=== PATIENT | female | born 1980 | race Caucasian/White ===

== ENCOUNTER 2024-09-10 19:39 | Outpatient (CLI) | payer OTHER ==
--- NOTE | 2024-09-20 12:21 | P.PCN ---
Description of Procedure: POLYSOMNOGRAPHY REPORT PROCEDURE(S)/DATE(S): Polysomnography 323 5 CLINICAL: Patient has been seen in the sleep center for evaluation of obstructive sleep apnea-hypopnea syndrome. Please see my consultation. Sleep study has been done for evaluation of patient breathing during the sleep. PROCEDURE: The standard montage for clinical polysomnography included the electroencephalogram, the electrooculogram, the mentalis surface electromyography and Lead II cardiography. The respiratory battery consisted of measurements of nasal/buccal air flow, pressure transducer measurements from nose, thoracic and/or abdominal effort and intercostal surface electromyography. Video monitoring has been done to check for any parasomnia events. Nocturnal oxyhemoglobin saturations were obtained by finger oximetry. Step-cook titration with positive airway pressure was utilized to control the respiratory events, if necessary. RESULTS: During the diagnostic sleep study sleep efficiency was decreased to 74.9%. Latency to sleep onset was significantly prolonged to 55.0 min. Sleep architecture showed stage NI was short 3.2%, Delta sleep was absent 0%, REM sleep was normal 25.7%. Respiratory channel showed 0 obstructive apneas, 0 mixed apneas, 0 central apneas, 112 hypopneas with lowest oxygen level 85%. Total apnea hypopnea index was 24.2, 40.3 in REM sleep. Heart rate was in the range between 56 and 95, average 71. EMG showed 0 periodic limb movements per hour with 0 micro-arousals per hour. IMPRESSIONS: 1. Moderate obstructive sleep apnea hypopnea syndrome, severe in REM sleep. 2. No significant periodic limb movements have been documented. Please see other impressions from consultation PLAN: 1. The patient will have PAP titration for correction of respiratory abnormalities during the sleep. 2. Losing weight. 3. Sleep hygiene with regular time in bed for at least 7-1/2 hours. 4. No driving if feeling sleepiness. Thank you very much for allowing me to participate in the management of your patient. Sincerely, Ty Reyes MD, PhD, FAASM. Diplomat of [place] [employer], Sleep Medicine Board by [place] [employer] Pharmacy Benefits Coordinator of [facility] [place] cc: Delano Tao MD
== END 2024-09-11 05:20 | disposition home or self-care (01) ==
LOC: 3 N SLEEP 19:39
PROVIDERS: ATTEND Internal Medicine
DX: G47.33 Obstructive sleep apnea (adult) (pediatric) (principal)
CPT/HCPCS: 95810

== ENCOUNTER 2024-11-26 19:44 | Outpatient (CLI) | payer OTHER ==
--- NOTE | 2024-12-14 14:35 | P.PCN ---
Description of Procedure: CLINICAL: Titration with positive air pressure has been done for correction of respiratory abnormalities during sleep. DESCRIPTION OF PROCEDURE: The standard montage for clinical polysomnography included the electroencephalogram, the electrocardiogram, the mentalis surface electromyography and Lead II cardiography. The respiratory battery consisted of measurements of nasal /buccal air flow, pressure transducer measurements from the nose, thoracic and /or abdominal effort and intercostal surface electromyography. Video monitoring has been done to check for any parasomnia events. Nocturnal oxyhemoglobin saturations were obtained by finger oximetry. Step-cook titration with positive airway pressure was utilized to control respiratory events. Raw data of sleep recording has been reviewed and is adequate. RESULTS: Sleep efficiency was decreased to 79.6%. Latency to sleep onset was significantly prolonged to 74.5 minutes.]. Sleep architecture showed stage N1 was short 3.2%, Delta sleep was absent 0%, REM sleep was normal 24.1%. Heart rate was minimum 61 BPM, maximum 70 BPM, average 65 BPM. EMG showed 0 periodic limb movements per hour. PAP titration have been done with CPAP up to the pressure 15 cm H2O. patient continued to have abnormalities of respiration while on CPAP, switched to BPAP. BPAP titrated up to 17/13 cm H2O. The best results were at the pressure BiPAP 17/13 cm H2O. Apnea hypopnea index reduced to 5.8. IMPRESSION: 1. Obstructive sleep apnea hypopnea syndrome mostly on controle with BPAP treatment. 2. No significant periodic limb movements have been documented. Please see other impressions from consultation. PLAN: 1. The patient will have treatment with positive air pressure equipment with the level of pressure auto BiPAP with maximal inspiratory pressure 18 and minimal inspiratory pressure 7, pressure support 4 cm H2O and should use it every night for the whole night. 2. Watching weight. 3. Sleep hygiene with regular time in bed for at least 8 hours. 4. No driving if feeling any sleepiness. 5. I will see the patient for follow up visit to explain the results of the test, recommendations, check compliance with treatment and make any necessary adjustment related to mask fitting, pressure and humidification. Thank you very much for allowing me to participate in the management of your patient. Sincerely, Ty Reyes MD, PhD, FAASM Diplomat of [place] [employer] Sleep Medicine Board of [place] [employer] Sourcer of [facility] [place] cc: Delano Tao MD
== END 2024-11-27 05:25 | disposition home or self-care (01) ==
LOC: 3 N SLEEP 19:44
PROVIDERS: ATTEND Internal Medicine
DX: G47.33 Obstructive sleep apnea (adult) (pediatric) (principal); Z99.89 Dependence on other enabling machines and devices
CPT/HCPCS: 95811